=== PATIENT | male | born 1995 | race Native Hawaiian/Other Pacific Islander ===

== ENCOUNTER 2018-10-06 13:48 | Emergency (ER) | payer OTHER ==
[2018-10-06 13:54] VITALS: RESP 18
--- NOTE | 2018-10-06 14:24 | ED PDOC ---
HPI: Headache Time Seen by Provider: 10/06/18 14:02 Chief Complaint (Nursing): Headache Chief Complaint (Provider): Headache History Per: Patient History/Exam Limitations: no limitations Onset/Duration Of Symptoms: Days (x3) Current Symptoms Are (Timing): Still Present Quality: Pressure Associated Symptoms: denies: Photophobia, Blurred Vision, Nausea, Vomiting, Extremity Weakness Additional Complaint(s): 23 year old male presents to the ED for evaluation of a tactile fever and a pressure-like headache to the top of his head for the past three days. Patient reports using at home [place] remedies with minimal relief. Otherwise, denies sore throat, ear pain, cough, nausea, vomiting, diarrhea, abdominal pain, neck pain/stiffness, chest pain, sick contacts, and visual changes. PMD: none provided Past Medical History Reviewed: Historical Data, Nursing Documentation, Vital Signs Vital Signs: Last Vital Signs Temp 99.2 F 10/06/18 13:54 Pulse 90 10/06/18 13:54 Resp 18 10/06/18 13:54 BP 125/77 10/06/18 13:54 Pulse Ox 99 10/06/18 13:54 - Medical History PMH: No Chronic Diseases - Surgical History Surgical History: No Surg Hx - Family History Family History: States: Unknown Family Hx - Social History Current smoker - smoking cessation education provided: No Alcohol: None Drugs: Denies - Home Medications Home Medications: Ambulatory Orders Medication Instructions Recorded RX: Ibuprofen [Motrin Tab] 600 mg PO Q6 PRN #20 tab 10/06/18 - Allergies Allergies/Adverse Reactions: Allergies Allergy/AdvReac Type Severity Reaction Status Date / Time No Known Allergies Allergy Verified 10/06/18 13:59 Review of Systems ROS Statement: Except As Marked, All Systems Reviewed And Found Negative Constitutional: Positive for: Fever (tactile) Eyes: Negative for: Vision Change ENT: Negative for: Ear Pain, Throat Pain Cardiovascular: Negative for: Chest Pain Respiratory: Negative for: Cough Gastrointestinal: Negative for: Nausea, Vomiting, Abdominal Pain, Diarrhea Neurological: Positive for: Headache (presssure like to top of head) Physical Exam - Reviewed Nursing Documentation Reviewed: Yes Vital Signs Reviewed: Yes - Physical Exam Comments: GENERAL APPEARANCE: Patient is awake, alert, oriented x 3, in no acute distress. SKIN: Warm, dry; (-) cyanosis; (-) rash. HEAD: (-) scalp swelling or tenderness, (-) temporal artery tenderness. ENMT: (-) sinus tenderness; mucous membranes are moist. TMs: (-) bulging, (-) erythema. Pharynx: clear, uvula midline (+) faint erythema, (-) tonsilar hypertrophy, (-) exudates NECK: Supple, FROM (-) tenderness, (-) stiffness, (-) meningismus, (-) lymphadenopathy. CHEST AND RESPIRATORY: (-) rales, (-) rhonchi, (-) wheezes; breath sounds equal bilaterally. Respirations nonlabored. HEART AND CARDIOVASCULAR: (-) irregularity ABDOMEN AND GI: Soft; (-) tenderness. EXTREMITIES: (-) deformity. NEURO AND PSYCH: Mental status as above. bug trimmer: Pupils equal and reactive; EOMI; (-) facial asymmetry; tongue and uvula midline. Strength symmetric. Gait: steady. Speech: clear. - ECG O2 Sat by Pulse Oximetry: 99 (RA) Pulse Ox Interpretation: Normal Medical Decision Making Medical Decision Making: Initial Impression: headache, concern for fever Time: 1415 Initial Plan: --Tylenol 650mg PO --Throat culture --Influenza A B --Rapid strep --Reevaluation 1450 Patient reporting headache, currently ranked 6/10. Ibuprofen 600mg PO ordered. 1514 Rapid Strep: negative Influenza: Negative On re-evaluation, patient reports improvement of symptoms, resolution of headache. On exam, patient remains AAOx3, in no acute distress. Neck with FROM and no rigidity or tenderness. Lungs clear to auscultation, cardiac RRR, repeat neuro exam shows no focal findings. Vitals stable. Lab/Diagnostic results d/w the patient in great detail. Diagnosis of headache, probable viral syndrome d/w the patient. Based on history, exam and diagnostic results, plan will be for outpatient follow up with clinic. Patient instructed to follow-up with pmd / referral provided / the clinic in 1- 2 days without fail. Advised to take medication as prescribed. Return to the emergency room at any time for any new or worsening symptoms. Patient states he fully agrees with and understands discharge instructions. States that she agrees with the plan and disposition. Verbalized and repeated discharge instructions and plan. I have given the patient opportunity to ask any additional questions. Scribe Attestation: Documented by Monica Escoto, acting as a scribe for Gemma Winn PA-C. Provider Scribe Attestation: All medical record entries made by the Scribe were at my direction and personally dictated by me. I have reviewed the chart and agree that the record accurately reflects my personal performance of the history, physical exam, medical decision making, and the department course for this patient. I have also personally directed, reviewed, and agree with the discharge instructions and disposition. Disposition - Clinical Impression Clinical Impression: Headache, Viral syndrome - Patient ED Disposition Is Patient to be Admitted: No Counseled Patient/Family Regarding: Studies Performed, Diagnosis, Need For Followup, Rx Given - Disposition Referrals: [facility] [Outside] Devan Mueller MD [Medical Doctor] - Disposition: Routine/Home Disposition Time: 15:15 Condition: STABLE Additional Instructions: The emergency medical care you received today was directed at your acute symptoms. If you were prescribed any medication, please fill it and take as directed. It may take several days for your symptoms to resolve. Return to the Emergency Department if your symptoms worsen, do not improve, or if you have any other problems. Please contact your doctor in 2 days for re-evaluation and follow up / or call one of the physicians/clinics you have been referred to that are listed on the Patient Visit Information form that is included in your discharge packet. Bring any paperwork you were given at discharge with you along with any medications you are taking to your follow up visit. Our treatment cannot replace ongoing medical care by a primary care provider (PCP) outside of the emergency department. Prescriptions: RX: Ibuprofen [Motrin Tab] 600 mg PO Q6 PRN #20 tab PRN Reason: fever/headache/pain Instructions: Headache, Adult (DC), Viral Syndrome (DC) Forms: [employer] ([place]) Print Language: MALAYSIAN - POA Present On Arrival: None Results - Lab Results Lab Results: 10/06/18 10/06/18 14:38 14:38 Influenza Typ A,B (EIA) Negative for flu a/b Grp A Beta Strep Ag Negative
[2018-10-06 15:51] VITALS: BP 122/70; PULSE 84; TEMP 99
[2018-10-09 21:58] VITALS: O2SAT 99
== END 2018-10-06 15:50 | disposition home or self-care (01) ==
LOC: H.ER 13:48
DX: B34.9 Viral infection, unspecified (principal); R51 Headache